=== PATIENT | male | born 1960 | race African-American/Black ===

== ENCOUNTER 2017-07-05 14:52 | Outpatient (CLI) | payer BC | END 2017-07-05 14:53 | disposition home or self-care (01) | LOC: BICULT 14:52 | PROVIDERS: ATTEND Internal Medicine Nephrology | DX: N18.3 Chronic kidney disease, stage 3 (moderate) (principal); Q63.2 Ectopic kidney | CPT/HCPCS: 76770 ==

== ENCOUNTER 2018-09-29 10:15 | Outpatient (CLI) | payer BC ==
--- NOTE | 2018-09-29 10:50 | RAD ---
EXAM: 3 views of the left ankle HISTORY: Medial ankle pain COMPARISON: None FINDINGS: 3 views of the left ankle shows no evidence of acute fracture or dislocation. Moderate diff use soft tissue swelling is seen. Degenerative changes are seen in the midfoot. IMPRESSION: No evidence of acute osseous abnormality.
--- NOTE | 2018-09-29 10:51 | RAD ---
EXAM: 3 views of the right ankle HISTORY: Ankle pain COMPARISON: None FINDINGS: 3 views of the right ankle shows no evidence of acute fracture or dislocation. Moderate med ial soft tissue swelling is seen. Degenerative changes are seen in the midfoot. IMPRESSION: No evidence of acute osseous abnormality.
--- NOTE | 2018-09-29 10:52 | RAD ---
EXAM: 3 views of the left foot HISTORY: Foot pain COMPARISON: None FINDINGS: 3 views of the left foot shows no evidence of acute fracture or dislocation. Moderate diffu se soft tissue swelling is seen. Mild degenerative changes are seen in the mid foot and great toe metatarsophalangeal joint. IMPRESSION: No evidence of acute osseous abnormality.
--- NOTE | 2018-09-29 10:52 | RAD ---
EXAM: 3 views of the right foot HISTORY: Foot pain COMPARISON: None FINDINGS: 3 views of the right foot shows no evidence of acute fracture or dislocation. Moderate diff use soft tissue swelling is seen. Moderate degenerative changes are seen in the midfoot. There is also joint space narrowing of the great toe metatarsophalangeal joint with marginal erosions. IMPRESSION: 1. No evidence of acute osseous abnormality. 2. Mid foot and great toe degenerative change
== END 2018-09-29 10:16 | disposition home or self-care (01) ==
LOC: BICRAD 10:15
PROVIDERS: ATTEND Family Medicine
DX: M10.9 Gout, unspecified (principal); M19.072 Primary osteoarthritis, left ankle and foot
CPT/HCPCS: 36415; 80053; 80061; 81001; 84550; 85025